=== PATIENT | male | born 1990 | race Caucasian/White ===

== ENCOUNTER 2016-07-21 20:01 | Emergency (ER) | payer SELFPAY ==
--- NOTE | ~2016-07-21 | ER ---
PATIENT'S NAME: ANGELICA BROWN [facility] AGE: 26 Y [address] ROOM: [place] [address] LOCATION: [facility] ADMIT DATE: 07/21/2016 ER/Outpatient Report DISCHARGE DATE: 07/21/2016 FAMILY PHYSICIAN: PHYSICIAN, NO ATTENDING PHYSICIAN: Balta Mike Time of Arrival: 2001 hours. Time of Evaluation: 2004 hours. CHIEF COMPLAINT: Irregular heartbeat. HISTORY OF PRESENT ILLNESS: The patient is a 26-year-old male who presents to the emergency department today with a chief complaint of an irregular heartbeat. He reports this started 2 days prior to arrival. He describes palpitation-type symptoms. Also shortness of breath at times. No real chest pain, no pain, currently 0/10 in severity. He does report he has no symptoms currently. Denies any weakness. No nausea or vomiting. No diaphoresis. No fevers or chills. No diarrhea or constipation. PAST MEDICAL HISTORY: Stress-induced TIA. PAST SURGICAL HISTORY: None. SOCIAL HISTORY: The patient smokes. Denies any alcohol or illicit drug use. ALLERGIES: NO KNOWN DRUG ALLERGIES. MEDICATIONS: B12. PRIMARY CARE DOCTOR: None. REVIEW OF SYSTEMS: All systems are reviewed by myself and are negative with the exception of those discussed in HPI and past medical history. PHYSICAL EXAMINATION: VITAL SIGNS: Weight 73.3 kg, blood pressure 152/90, pulse 84, respiratory PATIENT'S NAME: ANGELICA BROWN [facility] AGE: 26 Y [address] ROOM: [place] [address] LOCATION: [facility] ADMIT DATE: 07/21/2016 ER/Outpatient Report DISCHARGE DATE: 07/21/2016 FAMILY PHYSICIAN: PHYSICIAN, NO ATTENDING PHYSICIAN: Balta Mike rate 16, temperature 98.9, and oxygen saturation 100% on room air. GENERAL: The patient is a 26-year-old male, appears his stated age, in no acute distress at this time. HEENT: Head: Normocephalic, atraumatic. Pupils are equal, round, and reactive to light and accommodation. Extraocular motions are intact. Nares are patent bilaterally. TMs are clear. Oropharynx is clear. NECK: Supple. There is no nuchal rigidity. CARDIOVASCULAR: Regular rate and rhythm. No murmurs, rubs, or gallops. LUNGS: Clear to auscultation bilaterally. No wheezes, rales, or rhonchi. ABDOMEN: Soft, nontender, and nondistended. No rebound, rigidity, or guarding. MUSCULOSKELETAL: The patient moves all 4 extremities. 5/5 muscle strength. SKIN: Warm and dry. There are no rashes or lesions noted. DIAGNOSTIC DATA: Labs and x-rays are obtained. CBC is normal. EKG is obtained and interpreted by myself shows sinus rhythm with a rate 83, normal axis, normal interval. No ST elevation, ST depression, or T-wave inversion. CMP is unremarkable. Coag is normal. LFTs normal. Free T4 and TSH are normal. Magnesium is normal. CK is normal. CK-MB is normal. Troponin is normal. Chest x-ray shows no acute process. IMPRESSION: 1. Palpitations. 2. Initial visit. EMERGENCY DEPARTMENT COURSE: The patient was brought back to the examination room. Seen and evaluated by myself. Laboratory analysis and imaging are obtained as described above. Upon further questioning, the patient does report he is working 2 jobs and he drinks at least 2 energy drinks a day as well as he uses vitamin B12 once a week. I have discussed results with the patient. I have recommended abstaining from energy drinks. I have asked that he follows up with primary care doctor in 2-3 days for re-evaluation. The patient has asked a work note which is provided for him. DISPOSITION: The patient is discharged to home in good condition. DO IRVING TADEO/alanal PATIENT'S NAME: ANGELICA BROWN [facility] AGE: 26 Y [address] ROOM: [place] [address] LOCATION: ED ADMIT DATE: 07/21/2016 ER/Outpatient Report DISCHARGE DATE: 07/21/2016 FAMILY PHYSICIAN: PHYSICIAN, NO ATTENDING PHYSICIAN: Balta Mike /[id number] d: 07/22/16 0338 t: 07/23/16 1341, OUTPATIENT REPORT
[2016-07-21 20:35] LABS: BASOPHIL # 0.1 K/uL (0.0-0.2); BASOPHIL % 0.7 %; EOSINOPHIL # 0.2 K/uL (0.0-0.5); EOSINOPHIL % 2.3 %; HEMATOCRIT 46.5 % (37.0-53.0); HEMOGLOBIN 16.5 g/dL (12.0-17.0); IMMATURE GRANULOCYTE % 0.1 %; LYMPHOCYTE # 2.1 K/uL (0.8-4.0); LYMPHOCYTE % 28.3 %; MCH 31.3 pg (27.0-34.0); MCHC 35.5 gm/dL (32.0-36.5); MCV 88.1 fl (83.0-98.0); MONOCYTE # 0.7 K/uL (0.0-1.0); MONOCYTE % 8.7 %; MPV 11.9 fl (9.4-12.4); NEUTROPHIL # (ANC) 4.5 K/uL (1.4-9.0); NEUTROPHIL % 59.9 %; NRBC % 0 /100WBC (0-0.00); PLATELET COUNT 169 K/uL (150-450); RBC 5.28 M/uL (4.00-6.00); RDW-CV 12.3 % (11.9-14.6); WBC 7.5 K/uL (4.0-11.0)
[2016-07-21 20:48] LABS: PROTIME 10.9 SECONDS (9.6-11.1); PTT 30 SECONDS (25-32)
[2016-07-21 20:58] LABS: ALBUMIN 4.5 gm/dL (3.5-5.0); ALK PHOS 104 IU/L (33-138); ALT 21 IU/L (12-78); ANION GAP 9.5 (10.0-19.0); AST 18 IU/L (10-40); BLOOD UREA NITROGEN 9 mg/dL (6-24); CHLORIDE 105 mMol/L (96-110); CO2 31 mMol/L (22-32); CPK 112 IU/L (35-332); CREATININE 1.4 mg/dL (0.6-1.3); ESTIMATED GFR (MDRD EQUATION) 60; MAGNESIUM 2.2 mg/dL (1.3-2.6); POTASSIUM 3.5 mMol/L (3.7-5.1); SODIUM 142 mMol/L (135-145); TOTAL BILIRUBIN 0.5 mg/dL (0.0-1.5)
[2016-07-21 21:23] LABS: TOTAL PROTEIN 7.6 g/dL (6.0-8.4)
== END 2016-07-21 21:52 | disposition disaster alternative care site (69) ==
LOC: GMED 20:01
PROVIDERS: Emergency Medicine
DX: R00.2 Palpitations (principal); F17.200 Nicotine dependence, unspecified, uncomplicated

== ENCOUNTER 2016-07-30 19:43 | Emergency (ER) | payer SELFPAY ==
--- NOTE | ~2016-07-30 | ER ---
PATIENT'S NAME: ANGELICA BROWN [facility] AGE: 26 Y [address] ROOM: [place] [address] LOCATION: [facility] ADMIT DATE: 07/30/2016 ER/Outpatient Report DISCHARGE DATE: 07/30/2016 FAMILY PHYSICIAN: PHYSICIAN, NO ATTENDING PHYSICIAN: Alan Romeo Time of Arrival: 1943 hours. Time of Evaluation: 1950 hours. CHIEF COMPLAINT: Abdominal pain and flank pain. HISTORY OF PRESENT ILLNESS: This is a 26-year-old male, who presents to the ER, who states he has been having left-sided abdominal pain since Thursday. The patient states that his pain has been located in his left upper abdomen and into his flank area. He states he does have some urinary urgency with this. He states his last bowel movement was 2 days ago, but this is normal for him. He has had no nausea or vomiting. No diarrhea. No fever or chills. No other problems at this time. ALLERGIES: NO KNOWN ALLERGIES. MEDICATIONS: None. PAST MEDICAL HISTORY: Negative. PAST SURGICAL HISTORY: None. SOCIAL HISTORY: He smokes 1 pack a day for last 18 years. He denies any drug or alcohol use. REVIEW OF SYSTEMS: A 10-point review of systems was completed and was negative with the exception of those discussed in the HPI. PHYSICAL EXAMINATION: VITAL SIGNS: Height 5 feet 9 inches stated, weight 71.4 kg taken, blood pressure is 120/74, pulse 82, respirations 18, temperature 96.1 degrees tympanically, saturations 98% on room air. Yadiel Coma Score is 15. GENERAL: An alert, calm, well-developed male, in mild distress. HEENT: Head: Normocephalic. Eyes: Pupils are equal and reactive to light. PATIENT'S NAME: ANGELICA BROWN [facility] AGE: 26 Y [address] ROOM: [place] [address] LOCATION: [facility] ADMIT DATE: 07/30/2016 ER/Outpatient Report DISCHARGE DATE: 07/30/2016 FAMILY PHYSICIAN: PHYSICIAN, NO ATTENDING PHYSICIAN: Alan Romeo Does display moist mucous membranes. LUNGS: Clear to auscultation bilaterally. No wheezes or crackles. Normal respiratory effort. HEART: Regular rate and rhythm. No lifts, thrills, or murmurs. ABDOMEN: Soft. He has tenderness in the left side of his abdomen with palpation both on the left upper and the left lower quadrants. He has no guarding. No rebound tenderness. He has good bowel sounds throughout. No masses are palpated. EXTREMITIES: No clubbing, cyanosis, or edema. He has full range of motion of all limbs. LABORATORY DATA AND X-RAYS: CBC: White count is 6.1, hemoglobin is 16.6, platelets 160, and ANC is 3.8. CMS was unremarkable. Amylase 70, lipase 246. Urinalysis was negative for any infection. No blood in his urine. CT scan was done per stone protocol, shows no acute findings. IMPRESSION: Abdominal pain of unknown etiology. ASSESSMENT AND PLAN: We did give the patient a bolus of IV fluids along with Zofran and morphine. The patient did rest comfortably his entire stay. We will dismiss the patient to home. He states he does not want any prescription medications because he has no [facility] to fill them. I did give him information regarding [facility]. I would like him to monitor his symptoms closely. Take Tylenol or ibuprofen as needed. Follow up with the [facility] for followup care. The patient and the patient's significant other understand, and agree with care. LEE GUILLEN PA-C FOR MD DESIREE AMAYA/marika /[id number] d: t: 08/07/16 1232, OUTPATIENT REPORT
[2016-07-30 20:11] LABS: BASOPHIL % 0.5 %; EOSINOPHIL # 0.1 K/uL (0.0-0.5); EOSINOPHIL % 1.7 %; HEMOGLOBIN 16.6 g/dL (12.0-17.0); IMMATURE GRANULOCYTE % 0.2 %; LYMPHOCYTE # 1.2 K/uL (0.8-4.0); LYMPHOCYTE % 20.3 %; MCH 31.2 pg (27.0-34.0); MCHC 35.3 gm/dL (32.0-36.5); MCV 88.3 fl (83.0-98.0); MONOCYTE # 0.9 K/uL (0.0-1.0); MPV 11.8 fl (9.4-12.4); NEUTROPHIL # (ANC) 3.8 K/uL (1.4-9.0); NEUTROPHIL % 62.3 %; NRBC % 0 /100WBC (0-0.00); PLATELET COUNT 160 K/uL (150-450); RBC 5.32 M/uL (4.00-6.00); RDW-CV 12.2 % (11.9-14.6); WBC 6.1 K/uL (4.0-11.0)
[2016-07-30 20:15] LABS: BILIRUBIN URINE NEGATIVE (NEGATIVE); BLOOD URINE NEGATIVE /UL (NEGATIVE); GLUCOSE URINE NEGATIVE (NEGATIVE); KETONE URINE NEGATIVE (NEGATIVE); LEUKOCYTES URINE NEGATIVE /UL (NEGATIVE); NITRITE URINE NEGATIVE (NEGATIVE); PROTEIN URINE NEGATIVE (NEGATIVE); UROBILINOGEN URINE NORMAL (NORMAL)
[2016-07-30 20:21] LABS: COLOR URINE YELLOW (YELLOW); TURBIDITY URINE CLEAR (CLEAR)
[2016-07-30 20:30] LABS: ALBUMIN 4.5 gm/dL (3.5-5.0); ALK PHOS 105 IU/L (33-138); ALT 19 IU/L (12-78); ANION GAP 11.8 (10.0-19.0); AST 19 IU/L (10-40); BLOOD UREA NITROGEN 17 mg/dL (6-24); CALCIUM 8.8 mg/dL (8.5-10.5); CHLORIDE 106 mMol/L (96-110); CO2 27 mMol/L (22-32); CREATININE 1.1 mg/dL (0.6-1.3); ESTIMATED GFR (MDRD EQUATION) > 60; POTASSIUM 3.8 mMol/L (3.7-5.1); SODIUM 141 mMol/L (135-145); TOTAL BILIRUBIN 0.6 mg/dL (0.0-1.5); TOTAL PROTEIN 7.8 g/dL (6.0-8.4)
== END 2016-07-30 22:08 | disposition disaster alternative care site (69) ==
LOC: GMED 19:43
PROVIDERS: Emergency Medicine
DX: R10.12 Left upper quadrant pain (principal); R10.32 Left lower quadrant pain; F17.210 Nicotine dependence, cigarettes, uncomplicated
CPT/HCPCS: J2270; J2405; J7030

== ENCOUNTER 2016-09-16 03:28 | Emergency (ER) | payer SELFPAY ==
--- NOTE | ~2016-09-16 | ER ---
PATIENT'S NAME: ANGELICA BROWN [facility] AGE: 26 Y [address] ROOM: [place] [address] LOCATION: [facility] ADMIT DATE: 09/16/2016 ER/Outpatient Report DISCHARGE DATE: 09/16/2016 FAMILY PHYSICIAN: Physician, Unknown ATTENDING PHYSICIAN: Cheri Tomlinson HISTORY OF PRESENT ILLNESS: This is a 26-year-old male, who presents with multiple complaints. He states that he has some midsternal chest pain associated with some shortness of breath, generalized weakness, bilateral numbness and tingling in both hands, and feeling of no strength in his legs. He said that he had to come in the wheelchair. This all started about 30 minutes ago. He was working at [employer]. He states that he was not exerting himself. He did not have any other complaints really besides this. His girlfriend got a call that he was acting strangely at work, so that is why she brought him in. The patient denies feeling anxious at this time. PAST MEDICAL HISTORY: Includes anxiety and history of drug abuse. PAST SURGICAL HISTORY: None. SOCIAL HISTORY: He smokes, denies any drug or alcohol at this time. 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 MEDICATIONS: None. ALLERGIES: NONE. REVIEW OF SYSTEMS: Reviewed by me and negative with the exception of those discussed in the HPI. PHYSICAL EXAMINATION: VITAL SIGNS: The patient is 5 feet 9 inches. He weighs 70.7 kg, blood pressure 137/84, heart rate 82, respiratory rate 34, temperature is 98.7, and saturations are 99% on room air. GCS is 15. GENERAL: The patient is not in any acute distress. He is lying on the stretcher with his feet crossed. He is speaking in full sentences. He has unlabored breathing. He is not mottled. NEUROLOGIC: He is alert and oriented x4. His GCS is 15. HEART: His heart PATIENT'S NAME: ANGELICA BROWN [facility] AGE: 26 Y [address] ROOM: [place] [address] LOCATION: ED ADMIT DATE: 09/16/2016 ER/Outpatient Report DISCHARGE DATE: 09/16/2016 FAMILY PHYSICIAN: Physician, Unknown ATTENDING PHYSICIAN: Cheri Tolminson rate is regular rate and rhythm, 72 beats per minute on the monitor at this time. LUNGS: Lung sounds are clear. He is mildly tachypneic at around 25 breaths per minute at this time with saturating 99%. No retractions at this time. No wheezing. No rhonchi. ABDOMEN: Soft, nontender, and nondistended. No guarding or rebound. EXTREMITIES: He has no pedal edema. SKIN: Warm, dry, and intact. He has no mottling. He does not have any cyanosis or cool extremities. EMERGENCY ROOM COURSE: An EKG was done, which shows sinus rhythm without any ectopy, ST elevations, or ST depressions. I personally think that the patient looks anxious and given that the fact he appears to be hyperventilating with the numbness and tingling in his hands and feet, we gave him some Ativan here. We also watched him for approximately 2 hours. His heart rate never changed. He never complained of anything else. He says that the numbness has mildly improved. I think he can go home and follow up with his primary care doctor. We wrote him a work note and I wrote in his discharge paper that we gave him Ativan, so he can take it to his financial officer. He understands reasons to come back to the ER sooner. IMPRESSION: Atypical chest pain and bilateral hand tingling. MD HALLIE ALEMAN/marika /[id number] d: 09/16/16 1337 t: 10/15/16 1101, OUTPATIENT REPORT
== END 2016-09-16 05:22 | disposition disaster alternative care site (69) ==
LOC: GMED 03:28
DX: R07.89 Other chest pain (principal); F41.9 Anxiety disorder, unspecified; F19.21 Other psychoactive substance dependence, in remission; F17.210 Nicotine dependence, cigarettes, uncomplicated; R20.2 Paresthesia of skin